=== PATIENT | male | born 1960 | race Caucasian/White ===

== ENCOUNTER 2021-02-13 22:18 | Inpatient (IN) | payer OTHER ==
[2021-02-13] MEDS ORDERED: SODIUM CHLORIDE 1,000 ML IV ONE (22:27)
[2021-02-13] MEDS ORDERED: INSULIN REGULAR HUMAN 100 UNITS/ML *VIAL IVPUSH ONE (22:27)
[2021-02-13] MEDS ORDERED: INSULIN REGULAR HUMAN 100 UNITS/ML *VIAL ONE (22:51)
[2021-02-13 22:55] LABS: HEMATOCRIT 25.7 % (35.4-49); HEMOGLOBIN 8.1 GM/dl (11.7-16.9); MCHC 31.5 g/dl (32.0-35.9); MEAN CELL VOLUME 69.7 fl (80-96); MEAN PLT VOLUME 9.6 fl (7.5-11.1); PLATELET COUNT 543 10^3/uL (134-434); RBC 3.69 M/mm3 (4.00-5.60); RDW 15.8 % (11.9-15.9); WHITE BLOOD COUNT 11.2 K/mm3 (4.0-10.8)
[2021-02-13 23:18] LABS: ALBUMIN 3.1 g/dl (3.4-5.0); BILIRUBIN,TOTAL 0.7 mg/dl (0.2-1); CALCIUM 8.3 mg/dl (8.5-10); CREATININE 0.8 mg/dl (0.55-1.3); MAGNESIUM 1.9 mg/dL (1.8-2.4); TOT PROT 6.8 g/dl (6.4-8.2)
[2021-02-13 23:24] LABS: ANISOCYTOSIS 1+; PLATELET ESTIMATE SLT INCREASE
[2021-02-14] MEDS ORDERED: INSULIN REGULAR HUMAN 100 UNITS/ML *VIAL IVPUSH ONE (00:13)
[2021-02-14] MEDS ORDERED: INSULIN REGULAR HUMAN 100 UNITS/ML *VIAL ONE (00:15)
[2021-02-14] MEDS ORDERED: SODIUM CHLORIDE 1,000 ML IV ONE (00:19)
[2021-02-14 03:12] VITALS: BMI 27.8
[2021-02-14] MEDS: ENOXAPARIN NA (PORCINE) 40 MG/0.4 ML DISP.SYRIN SQ SCH (09:24)
[2021-02-14] MEDS ORDERED: SODIUM CHLORIDE 1,000 ML IV SCH (09:45)
[2021-02-14 10:53] LABS: BASO % 0.3 % (0-2.0); EOS % 0.7 % (0-4.5); LYMPH % 16.2 % (8-40); MCH 21.2 pg (25.7-33.7); MCHC 30.5 g/dl (32.0-35.9); MEAN CELL VOLUME 69.5 fl (80-96); MEAN PLT VOLUME 7.8 fl (7.5-11.1); MONO % 6.8 % (3.8-10.2); PLATELET COUNT 371 10^3/uL (134-434); RBC 3.32 M/mm3 (4.00-5.60); RDW 15.6 % (11.9-15.9); WHITE BLOOD COUNT 7.8 K/mm3 (4.0-10.8)
[2021-02-14] MEDS: INSULIN SLIDING SCALE (NOVOLOG) 1 VIAL SQ SCH ×3 (11:05→21:36)
[2021-02-14 11:17] LABS: ALBUMIN 2.5 g/dl (3.4-5.0); BILIRUBIN,TOTAL 0.4 mg/dl (0.2-1); CALCIUM 7.7 mg/dl (8.5-10); CREATININE 0.6 mg/dl (0.55-1.3); MAGNESIUM 1.8 mg/dL (1.8-2.4); TOT PROT 5.7 g/dl (6.4-8.2)
[2021-02-15] MEDS: INSULIN SLIDING SCALE (NOVOLOG) 1 VIAL SQ SCH ×4 (06:18→21:39)
[2021-02-15 08:07] LABS: HEMATOCRIT 23.1 % (35.4-49); HEMOGLOBIN 7.2 GM/dl (11.7-16.9); MCH 21.8 pg (25.7-33.7); MCHC 31.3 g/dl (32.0-35.9); MEAN CELL VOLUME 69.8 fl (80-96); MEAN PLT VOLUME 8.2 fl (7.5-11.1); PLATELET COUNT 373 10^3/uL (134-434); RBC 3.31 M/mm3 (4.00-5.60); RDW 15.9 % (11.9-15.9); WHITE BLOOD COUNT 6.8 K/mm3 (4.0-10.8)
[2021-02-15 08:14] LABS: ALBUMIN 2.3 g/dl (3.4-5.0); BILIRUBIN,TOTAL 0.6 mg/dl (0.2-1); CALCIUM 7.9 mg/dl (8.5-10); CREATININE 0.6 mg/dl (0.55-1.3); TOT PROT 5.2 g/dl (6.4-8.2)
[2021-02-15] MEDS: ENOXAPARIN NA (PORCINE) 40 MG/0.4 ML DISP.SYRIN SQ SCH (09:29)
[2021-02-15 10:08] LABS: SARS-CoV-2 NAA Not Detected (Not Detected)
[2021-02-15 12:06] LABS: IRON SERUM 11 ug/dL (50-175)
[2021-02-15 12:07] LABS: TOTAL IRON BINDING CAPACITY 148 ug/dL (250-450)
[2021-02-16 04:37] VITALS: TEMP 98.2
[2021-02-16 06:41] VITALS: BP 120/70; PULSE 85
[2021-02-16] MEDS: INSULIN SLIDING SCALE (NOVOLOG) 1 VIAL SQ SCH (06:41)
[2021-02-16] MEDS: ENOXAPARIN NA (PORCINE) 40 MG/0.4 ML DISP.SYRIN SQ SCH (09:35)
== END 2021-02-16 11:50 | disposition home or self-care (01) | DRG 638 ==
LOC: FER 22:18 → FM/S 02-14 02:50
PROVIDERS: ADMIT Hospitalist; ATTEND Nurse Practitioner Acute Care
DX: E11.65 Type 2 diabetes mellitus with hyperglycemia (principal); E87.1 Hypo-osmolality and hyponatremia; R42 Dizziness and giddiness; I10 Essential (primary) hypertension; D64.9 Anemia, unspecified; Z79.84 Long term (current) use of oral hypoglycemic drugs
CPT/HCPCS: 36415; 71045-TC-FY; 80053; 81003; 82550; 82962; 83036; 83540; 83550; 83605; 83735; 84484; 85025; 85027; 93005; 99285-25; C9803; U0003; U0005

== ENCOUNTER 2021-04-13 03:54 | Emergency (ER) | payer OTHER ==
[2021-04-13 04:05] VITALS: BP 149/91; PULSE 98; TEMP 98.3; BMI 55.3
== END 2021-04-13 04:54 | disposition home or self-care (01) ==
LOC: FER 03:54
DX: R33.9 Retention of urine, unspecified (principal)
CPT/HCPCS: 99283-25